=== PATIENT | male | born 1965 | race Two or more races ===

== ENCOUNTER 2020-01-07 10:09 | Emergency (ER) | payer OTHER ==
[~2020-01-07] VITALS: Ht 167.6 cm; Wt 85.0 kg
--- NOTE | 2020-01-07 10:48 | NUR ---
LARRY ABRAMS AT BEDSIDE FOR LBP EVALUATION
--- NOTE | 2020-01-07 10:56 | NUR ---
PT TO IMAGING
[2020-01-07] MEDS ORDERED: KETOROLAC 30 MG/1 ML ONE (10:57)
--- NOTE | 2020-01-07 11:28 | NUR ---
standby assistance for urinal at bedside.
[2020-01-07] MEDS: HYDROmorphone 1 MG/ML, 1ML INJ IM ONE ×2 (11:38→11:59)
--- NOTE | 2020-01-07 11:38 | NUR ---
LARRY ABRAMS AT BEDSIDE TO DISCUSS POC
[2020-01-07] MEDS ORDERED: HYDROmorphone 2 MG/ML, 1ML ONE ×2 (11:54→12:45)
[2020-01-07] MEDS ORDERED: KETOROLAC 60 MG/2 ML IM ONE (12:00)
--- NOTE | 2020-01-07 12:00 | NUR ---
ERMD NOTIFIED PT AND FAMILY HAVE MORE QUESTIONS
[2020-01-07 12:48] VITALS: BP 127/92
[2020-01-07] MEDS ORDERED: HYDROmorphone 1 MG/ML, 1ML INJ IV ONE (13:00)
--- NOTE | 2020-01-07 13:55 | NUR ---
discharge instuctions reviewed
== END 2020-01-07 13:56 | disposition home or self-care (01) ==
LOC: ED 11:34
DX: S39.012A Strain of muscle, fascia and tendon of lower back, initial encounter (principal); X58.XXXA Exposure to other specified factors, initial encounter; Y93.89 Activity, other specified; Y92.89 Other specified places as the place of occurrence of the external cause; Y99.8 Other external cause status
CPT/HCPCS: 72110; 96372; 96374; 99284; J1170; J1885